=== PATIENT | female | born 1960 | race Caucasian/White ===

== ENCOUNTER 2017-04-13 14:33 | Inpatient (IN) | payer OTHER ==
[~2017-04-13] VITALS: Ht 152.4 cm; Wt 75.5 kg
[2017-04-13 17:12] LABS: CARBON DIOXIDE 25.6 mmol/L (21-32); CHLORIDE SERUM 98 mmol/L (98-107); GFR1 > 60 mL/min; GLUCOSE SERUM 148 mg/dL (74-106); POTASSIUM SERUM 3.5 mmol/L (3.5-5.1); SODIUM SERUM 134 mmol/L (136-145)
[2017-04-13 17:17] LABS: ALBUMIN 2.9 g/dL (3.4-5.0); ALKALINE PHOSPHATASE 101 U/L (46-116); ALT/SGPT 17 U/L (14-59); AST/SGOT 14 U/L (15-37); BILIRUBIN TOTAL 0.55 mg/dL (0.20-1.00); CHOLESTEROL 71 mg/dL (<200); HDL CHOLESTEROL 30 mg/dL (40-60); TOTAL PROTEIN, SERUM 7.5 g/dL (6.4-8.2)
[2017-04-13 17:20] LABS: microscopic required? YES; urine erythrocyte 2+ (NEGATIVE)
[2017-04-13 17:20] LABS: PLATELET COUNT 75 x10^3mcL (130-400); RED CELL DISTRIBUTION WIDTH 21.3 % (11.5-14.5)
[2017-04-13] MEDS ORDERED: NOR5 PO (17:28)
[2017-04-13] MEDS ORDERED: LONSURF 20 MG-1 EACH PO (17:28)
[2017-04-13] MEDS ORDERED: TENORMIN50 MG PO (17:29)
[2017-04-13 17:40] LABS: BAND NEUTROPHIL 4 % (0-10); BASOPHIL 0 % (0-2); MONOCYTE 2 % (0-7); SEGMENTED NEUTROPHILS 64 % (37-75)
[2017-04-13 17:42] LABS: rbc morphology (normal/abnorm) ABNORMAL (NORMAL)
[2017-04-13 18:53] LABS: MAGNESIUM 1.9 mg/dL (1.8-2.4); PHOSPHOROUS 2.1 mg/dL (2.5-4.9)
[2017-04-13 18:54] LABS: CHOLESTEROL/HDL RATIO 2.4
[2017-04-13 19:02] VITALS: BP 111/40
[2017-04-13 19:09] LABS: FREE T4 1.45 ng/dL (0.76-1.46); FREE THYROXINE INDEX 2.8 ug/dL (1.4-4.5); T4(THYROXINE) 7.6 ug/dL (4.7-13.3)
[2017-04-13 19:21] LABS: T3 TOTAL 0.69 ng/mL
[2017-04-13 20:00] LABS: AMPHETAMINE QUAL UR NONE DETECTED (NEG <=1000)
[2017-04-13 21:44] VITALS: BP 93/45
[2017-04-14] VITALS (7 sets, daily range): BP systolic 101–117; BP diastolic 35–62
[2017-04-14 06:51] LABS: CALCIUM 8.2 mg/dL (8.5-10.1); CARBON DIOXIDE 29.4 mmol/L (21-32); CHLORIDE SERUM 103 mmol/L (98-107); CREATININE SERUM 0.7 mg/dL (0.6-1.0); GFR1 > 60 mL/min; GLUCOSE SERUM 112 mg/dL (74-106); MAGNESIUM 1.9 mg/dL (1.8-2.4); PHOSPHOROUS 2.2 mg/dL (2.5-4.9); POTASSIUM SERUM 3.3 mmol/L (3.5-5.1); SODIUM SERUM 139 mmol/L (136-145)
[2017-04-14 07:11] LABS: IRON 28 ug/dL (50-170); TOTAL IRON BINDING CAPACITY 147 ug/dL (250-450)
[2017-04-14 08:02] LABS: RED BLOOD CELLS 1.58 M/mm3 (4.10-5.10)
[2017-04-14 08:45] LABS: PLATELET COUNT 63 x10^3mcL (130-400); RED CELL DISTRIBUTION WIDTH 21.2 % (11.5-14.5)
[2017-04-14 10:12] LABS: ATYPICAL LYMPH 8 %; BASOPHIL 0 % (0-2); MONOCYTE 8 % (0-7); SEGMENTED NEUTROPHILS 60 % (37-75)
[2017-04-14 10:13] LABS: rbc morphology (normal/abnorm) ABNORMAL (NORMAL)
[2017-04-14 10:14] LABS: PLATELET MORPHOLOGY PLATELETS DECREASED
[2017-04-14 19:49] LABS: ALBUMIN 2.9 g/dL (3.4-5.0); ALKALINE PHOSPHATASE 108 U/L (46-116); ALT/SGPT 19 U/L (14-59); AST/SGOT 21 U/L (15-37); BILIRUBIN TOTAL 1.13 mg/dL (0.20-1.00); CALCIUM 8.4 mg/dL (8.5-10.1); CARBON DIOXIDE 23.7 mmol/L (21-32); CHLORIDE SERUM 100 mmol/L (98-107); CREATININE SERUM 0.8 mg/dL (0.6-1.0); GFR1 > 60 mL/min; GLUCOSE SERUM 133 mg/dL (74-106); POTASSIUM SERUM 3.5 mmol/L (3.5-5.1); SODIUM SERUM 126 mmol/L (136-145); TOTAL PROTEIN, SERUM 7.9 g/dL (6.4-8.2)
[2017-04-14 20:14] LABS: PLATELET COUNT 98 x10^3mcL (130-400); RED CELL DISTRIBUTION WIDTH 20.5 % (11.5-14.5)
[2017-04-14 20:21] LABS: ATYPICAL LYMPH 1 %; BAND NEUTROPHIL 2 % (0-10); METAMYELOCTE 3 % (0-2); MONOCYTE 3 % (0-7); SEGMENTED NEUTROPHILS 43 % (37-75)
[2017-04-14 20:24] LABS: ovalocyte/elliptocyte 2+; rbc morphology (normal/abnorm) ABNORMAL (NORMAL)
[2017-04-15] VITALS (7 sets, daily range): BP systolic 91–117; BP diastolic 47–54
[2017-04-15 06:20] LABS: CALCIUM 8.3 mg/dL (8.5-10.1); CARBON DIOXIDE 27.9 mmol/L (21-32); CHLORIDE SERUM 103 mmol/L (98-107); CREATININE SERUM 0.7 mg/dL (0.6-1.0); GFR1 > 60 mL/min; GLUCOSE SERUM 103 mg/dL (74-106); MAGNESIUM 1.7 mg/dL (1.8-2.4); PHOSPHOROUS 2.2 mg/dL (2.5-4.9); POTASSIUM SERUM 3.6 mmol/L (3.5-5.1); SODIUM SERUM 139 mmol/L (136-145)
[2017-04-15 07:16] LABS: PLATELET COUNT 89 x10^3mcL (130-400); RED CELL DISTRIBUTION WIDTH 20.9 % (11.5-14.5)
[2017-04-15 10:49] LABS: BAND NEUTROPHIL 6 % (0-10); SEGMENTED NEUTROPHILS 68 % (37-75)
[2017-04-15 10:50] LABS: ATYPICAL LYMPH 4 %; BASOPHIL 0 % (0-2); MONOCYTE 2 % (0-7); rbc morphology (normal/abnorm) ABNORMAL (NORMAL)
[2017-04-16 05:25] VITALS: BP 120/45
[2017-04-16 07:24] LABS: RED CELL DISTRIBUTION WIDTH 21.1 % (11.5-14.5)
[2017-04-16 07:25] LABS: PLATELET COUNT 101 x10^3mcL (130-400)
[2017-04-16 07:29] LABS: CALCIUM 8.1 mg/dL (8.5-10.1); CARBON DIOXIDE 29.3 mmol/L (21-32); CHLORIDE SERUM 104 mmol/L (98-107); CREATININE SERUM 0.7 mg/dL (0.6-1.0); GFR1 > 60 mL/min; GLUCOSE SERUM 95 mg/dL (74-106); MAGNESIUM 1.6 mg/dL (1.8-2.4); PHOSPHOROUS 3.6 mg/dL (2.5-4.9); POTASSIUM SERUM 3.3 mmol/L (3.5-5.1); SODIUM SERUM 139 mmol/L (136-145)
[2017-04-16 10:27] LABS: BAND NEUTROPHIL 1 % (0-10); MONOCYTE 14 % (0-7); SEGMENTED NEUTROPHILS 53 % (37-75); rbc morphology (normal/abnorm) ABNORMAL (NORMAL)
[2017-04-16] MEDS ORDERED: FER300 PO (12:20)
[2017-04-16] MEDS ORDERED: OSCD PO (12:21)
[2017-04-16] MEDS ORDERED: ROBITUSSIN W/CODEINE PO (12:21)
[2017-04-16] MEDS ORDERED: MAG PO (12:21)
[2017-04-16] MEDS ORDERED: GLU500 PO (12:22)
[2017-04-16] MEDS ORDERED: LEVAQUIN750 MG PO (12:23)
[2017-04-16] MEDS ORDERED: LAC PO (12:24)
[2017-04-16] MEDS ORDERED: CLEOCIN HCL300 MG PO (12:24)
[2017-04-16 13:01] VITALS: BP 120/45
[2017-04-16] MEDS ORDERED: PROINH INH (13:34)
== END 2017-04-16 14:05 | disposition home or self-care (01) | DRG 720 ==
LOC: ED 14:33 → DU 18:09
PROVIDERS: Emergency Medicine; ADMIT Family Medicine
PROC: 30233N1 Transfusion of Nonautologous Red Blood Cells into Peripheral Vein, Percutaneous Approach (ICD-10-PCS; principal; 2017-04-14)
DX: A41.9 Sepsis, unspecified organism (principal); N17.0 Acute kidney failure with tubular necrosis; D61.810 Antineoplastic chemotherapy induced pancytopenia; E44.0 Moderate protein-calorie malnutrition; K86.2 Cyst of pancreas; J18.9 Pneumonia, unspecified organism; C78.00 Secondary malignant neoplasm of unspecified lung; C78.7 Secondary malignant neoplasm of liver and intrahepatic bile duct; E83.39 Other disorders of phosphorus metabolism; E87.1 Hypo-osmolality and hyponatremia; R65.20 Severe sepsis without septic shock; C18.9 Malignant neoplasm of colon, unspecified; E11.65 Type 2 diabetes mellitus with hyperglycemia; E66.9 Obesity, unspecified; I10 Essential (primary) hypertension; Z68.32 Body mass index [BMI] 32.0-32.9, adult; Z88.0 Allergy status to penicillin; D64.9 Anemia, unspecified; Z79.899 Other long term (current) drug therapy; Z90.49 Acquired absence of other specified parts of digestive tract; D72.819 Decreased white blood cell count, unspecified; R31.9 Hematuria, unspecified
CPT/HCPCS: 82962; 83880; 84439; 87804; 94150; J1956; J2405; J2916; J3490; J7030; J7040; J7050; J7620; P9016; Q0092; Q0163; Q9966; Q9967

== ENCOUNTER 2018-01-24 16:43 | Inpatient (IN) | payer OTHER ==
[~2018-01-24] VITALS: Ht 157.5 cm; Wt 65.8 kg
[~2018-01-24 16:43] MED LIST: CLEOCIN HCL300 MG PO; FER300 PO; GLU500 PO; LAC PO; LEVAQUIN750 MG PO; LONSURF 20 MG-1 EACH PO; MAG PO; NOR5 PO; OSCD PO; PROINH INH; ROBITUSSIN W/CODEINE PO; TENORMIN50 MG PO
[2018-01-24 16:59] VITALS: Ht 157.5 cm; Wt 65.8 kg
[2018-01-24 18:14] LABS: CALCIUM 9.1 mg/dL (8.5-10.1); CARBON DIOXIDE 24.9 mmol/L (21-32); CHLORIDE SERUM 100 mmol/L (98-107); CREATININE SERUM 0.9 mg/dL (0.6-1.0); GFR1 > 60 mL/min; GLUCOSE SERUM 197 mg/dL (74-106); POTASSIUM SERUM 3.5 mmol/L (3.5-5.1); SODIUM SERUM 137 mmol/L (136-145)
[2018-01-24 18:18] LABS: ALKALINE PHOSPHATASE 264 U/L (46-116); ALT/SGPT 26 U/L (14-59); AST/SGOT 42 U/L (15-37); BILIRUBIN TOTAL 0.45 mg/dL (0.20-1.00); MAGNESIUM 1.8 mg/dL (1.8-2.4)
[2018-01-24 18:19] LABS: ALBUMIN 2.9 g/dL (3.4-5.0); TOTAL PROTEIN, SERUM 8.8 g/dL (6.4-8.2)
[2018-01-24 18:21] LABS: BASOPHIL % 0.3 % (0-2); PLATELET COUNT 363 x10^3mcL (130-400)
[2018-01-24 18:28] LABS: RED CELL DISTRIBUTION WIDTH 20.5 % (11.5-14.5)
[2018-01-24 20:41] LABS: CHOLESTEROL/HDL RATIO 4.3; PHOSPHOROUS 4.5 mg/dL (2.5-4.9)
[2018-01-24 20:48] LABS: T3 TOTAL 1.17 ng/mL
[2018-01-24 20:50] LABS: FREE T4 1.49 ng/dL (0.76-1.46); FREE THYROXINE INDEX 2.9 ug/dL (1.4-4.5); T4(THYROXINE) 9.3 ug/dL (4.7-13.3)
[2018-01-24 21:21] VITALS: BP 128/85
[2018-01-25 04:02] VITALS: BP 128/85
[2018-01-25 05:36] LABS: UA SPECIFIC GRAVITY >=1.030 (1.005-1.035); microscopic required? YES; urine erythrocyte NEGATIVE (NEGATIVE)
[2018-01-25 05:43] VITALS: BP 113/58
[2018-01-25 05:50] LABS: AMPHETAMINE QUAL UR NONE DETECTED (See below)
[2018-01-25 06:37] LABS: BASOPHIL % 0.4 % (0-2); PLATELET COUNT 308 x10^3mcL (130-400)
[2018-01-25 06:45] LABS: CARBON DIOXIDE 28.1 mmol/L (21-32); CHLORIDE SERUM 105 mmol/L (98-107); CREATININE SERUM 0.8 mg/dL (0.6-1.0); GFR1 > 60 mL/min; GLUCOSE SERUM 96 mg/dL (74-106); MAGNESIUM 1.9 mg/dL (1.8-2.4); PHOSPHOROUS 4.8 mg/dL (2.5-4.9); POTASSIUM SERUM 4.2 mmol/L (3.5-5.1); SODIUM SERUM 140 mmol/L (136-145)
[2018-01-25 08:59] LABS: RED BLOOD CELLS 3.35 M/mm3 (4.10-5.10)
[2018-01-25 09:00] VITALS: BP 128/69
[2018-01-25 09:52] LABS: IRON 25 ug/dL (50-170); TOTAL IRON BINDING CAPACITY 198 ug/dL (250-450)
[2018-01-25 12:32] VITALS: BP 125/56
[2018-01-25 16:18] VITALS: BP 102/56
[2018-01-25 20:44] VITALS: BP 106/54
[2018-01-26 05:28] VITALS: BP 129/63
[2018-01-26 06:46] LABS: CALCIUM 8.4 mg/dL (8.5-10.1); CARBON DIOXIDE 25.8 mmol/L (21-32); CHLORIDE SERUM 105 mmol/L (98-107); CREATININE SERUM 0.6 mg/dL (0.6-1.0); GFR1 > 60 mL/min; GLUCOSE SERUM 105 mg/dL (74-106); POTASSIUM SERUM 3.8 mmol/L (3.5-5.1); SODIUM SERUM 140 mmol/L (136-145)
[2018-01-26 07:41] LABS: BASOPHIL % 0.4 % (0-2); PLATELET COUNT 333 x10^3mcL (130-400); RED CELL DISTRIBUTION WIDTH 20.6 % (11.5-14.5)
[2018-01-26 07:58] VITALS: BP 115/59
[2018-01-26 13:06] VITALS: BP 110/55
[2018-01-26 16:12] VITALS: BP 114/62
[2018-01-26 20:56] VITALS: BP 101/54
[2018-01-27 05:50] VITALS: BP 119/63
[2018-01-27 06:31] LABS: BASOPHIL % 0.3 % (0-2); PLATELET COUNT 307 x10^3mcL (130-400)
[2018-01-27 06:35] LABS: RED CELL DISTRIBUTION WIDTH 21.1 % (11.5-14.5)
[2018-01-27 06:36] LABS: rbc morphology (normal/abnorm) ABNORMAL (NORMAL)
[2018-01-27 06:49] LABS: ALKALINE PHOSPHATASE 251 U/L (46-116); ALT/SGPT 22 U/L (14-59); AMYLASE 42 U/L (25-115); AST/SGOT 36 U/L (15-37); BILIRUBIN TOTAL 0.47 mg/dL (0.20-1.00); CALCIUM 8.8 mg/dL (8.5-10.1); CARBON DIOXIDE 25.4 mmol/L (21-32); CHLORIDE SERUM 103 mmol/L (98-107); CREATININE SERUM 0.7 mg/dL (0.6-1.0); GFR1 > 60 mL/min; GLUCOSE SERUM 95 mg/dL (74-106); LIPASE 109 IU/L (73-393); MAGNESIUM 1.5 mg/dL (1.8-2.4); PHOSPHOROUS 4.5 mg/dL (2.5-4.9); POTASSIUM SERUM 3.4 mmol/L (3.5-5.1); SODIUM SERUM 140 mmol/L (136-145)
[2018-01-27 06:50] LABS: ALBUMIN 2.4 g/dL (3.4-5.0)
[2018-01-27] MEDS ORDERED: CLEOCIN HCL300 MG PO (09:13)
[2018-01-27] MEDS ORDERED: LEVAQUIN750 MG PO (09:14)
[2018-01-27] MEDS ORDERED: LAC PO (09:17)
[2018-01-27 09:45] VITALS: BP 103/60
[2018-01-27 12:52] VITALS: BP 103/60
== END 2018-01-27 15:46 | disposition home or self-care (01) | DRG 178 ==
LOC: ED 16:43 → DU 20:09
PROVIDERS: Emergency Medicine; Family Medicine; Internal Medicine
DX: J69.0 Pneumonitis due to inhalation of food and vomit (principal); E44.0 Moderate protein-calorie malnutrition; C18.9 Malignant neoplasm of colon, unspecified; C78.7 Secondary malignant neoplasm of liver and intrahepatic bile duct; T39.1X5A Adverse effect of 4-Aminophenol derivatives, initial encounter; I10 Essential (primary) hypertension; M54.6 Pain in thoracic spine; Z68.23 Body mass index [BMI] 23.0-23.9, adult; Z85.030 Personal history of malignant carcinoid tumor of large intestine; Y92.230 Patient room in hospital as the place of occurrence of the external cause
CPT/HCPCS: 83880; 84439; 94150; 97110-GP; 97116-GP; 97530-GP; J1100; J1885; J1956; J2405; J2765; J3490; J7030; J8597; Q0092